=== PATIENT | male | born 1955 | race Caucasian/White ===

== ENCOUNTER 2018-05-19 06:25 | Day surgery (SDC) | payer OTHER ==
[~2018-05-19] VITALS: Ht 185.4 cm; Wt 127.0 kg
--- NOTE | ~2018-05-19 | OR ---
[facility] [address] [place], [place] [address] Draft DATE OF OPERATION: 05/19/2018 SURGEON: Milton Soriano MD PREOPERATIVE DIAGNOSIS: Tubular adenomas x2, 2016. POSTOPERATIVE DIAGNOSES: 1. Sigmoid diverticulosis. 2. Polyps x2 (small) right colon and left colon. PROCEDURE: Total colonoscopy to cecum with cold morcellation polypectomy x2. ANESTHESIA: Intravenous sedation, fentanyl 100 mcg, Versed 5 mg. INDICATION: This 62-year-old white man is a patient of Dr. Torres and has undergone colonoscopy by me in the past where he was noted to have tubular adenomas x2 that were excised. This was in 2015. He is symptom-free at this time. He is here for surveillance colonoscopy. He understands the risks of bleeding, infection, and perforation and wished to proceed. FINDINGS: The prep was excellent. Complete colonoscopy was undertaken to the cecum. There were 2 small polyps, one in the right colon, the other in the left, both were excised with cold morcellation technique. There were diverticula of the sigmoid colon. The rectum was normal. DESCRIPTION OF PROCEDURE: The patient was brought to the endoscopy suite and placed in lateral decubitus position, given intravenous sedation to the point of slurred speech and nystagmus. Digital rectal examination was normal. An Olympus video colonoscope was passed in the rectum and manipulated throughout the colon ultimately intubating the cecum itself. The ileocecal valve was slightly bulky, but not adenomatous. It was grasped and elevated, allowing for examination behind the ileocecal valve showing no sign of abnormality. The scope was then withdrawn and examination throughout undertaken showing a good prep. In the distal ascending colon was a small polyp. This was excised with cold morcellation technique completely. The PATIENT NAME: JOAO ECHAVARRIA OPERATIVE REPORT DATE OF : 57 REPORT #: [id number] PHYSICIAN: MILTON SORIANO MD PCP: NELLIE TORRES DO REPORT IS CONFIDENTIAL AND NOT TO BE RELEASED WITHOUT AUTHORIZATION [facility] [address] [place], [place] [address] Draft scope was further withdrawn and a similar such polyp was noted in the proximal descending colon. It too was excised with cold morcellation technique. Further withdrawal of scope showed some diverticula of the sigmoid and left colon. Retroflexed view of the rectum was normal. Scope was removed and the patient was taken to recovery room in good condition. CONCLUDING DIAGNOSES: 1. Polyps x2. 2. Diverticulosis of sigmoid and left colon. PLAN: Recommend repeat colonoscopy in 3 years, sooner if symptoms should occur. We will review his pathology report as well of course. He will return to the ongoing care of Dr. Torres, otherwise. MD SAMIR Lang/PORSCHEL /[id number] cc: Dr. Torres Copies: ~ PATIENT NAME: JOAO ECHAVARRIA OPERATIVE REPORT DATE OF : 57 REPORT #: [id number] PHYSICIAN: MILTON SORIANO MD PCP: NELLIE TORRES DO REPORT IS CONFIDENTIAL AND NOT TO BE RELEASED WITHOUT AUTHORIZATION
[~2018-05-19 06:25] MED LIST: ADULT LOW DOSE81 MG PO; ATORVASTATIN CA20 MG PO; BOSWELLIA SERRA10 GM MISC; COQ-10100 MG PO; DAILY MULTIPLE1 EACH PO; GARLIC1 EAC1 PO; GLUCOSAMINE &1 EAC1 PO; LOSARTAN POTAS100 MG PO; MELOXICAM7.5 MG PO; METFORMIN HCL500 M1 PO; NIACIN500 M1 PO; OMEGA 3 1,0001 EACH PO; RESVERATROL50 MG PO; VITAMIN D31000 UNI1 PO; ZESTORETIC 20-1 EACH PO
--- NOTE | 2018-05-19 08:16 | NUR ---
05/19/18 0816 Nicolette Metcalf 0811- PT ARRIVES TO PACU AWAKE. PT REPORTS NO PAIN OR NAUSEA. PT DROWSY AND FALLS TO SLEEP IF NOT BEING TALKED TO.
== END 2018-05-19 08:54 | disposition home or self-care (01) ==
LOC: OPS 06:25 → DS 06:25 → OPS 06:45
PROVIDERS: Surgery
PROC: 0DBM8ZX Excision of Descending Colon, Via Natural or Artificial Opening Endoscopic, Diagnostic (ICD-10-PCS; 2018-05-19)
PROC: 0DBK8ZX Excision of Ascending Colon, Via Natural or Artificial Opening Endoscopic, Diagnostic (ICD-10-PCS; principal; 2018-05-19 06:45)
DX: Z12.11 Encounter for screening for malignant neoplasm of colon (principal); D12.2 Benign neoplasm of ascending colon; D12.4 Benign neoplasm of descending colon; K57.30 Diverticulosis of large intestine without perforation or abscess without bleeding; E11.9 Type 2 diabetes mellitus without complications; I10 Essential (primary) hypertension; Z79.82 Long term (current) use of aspirin; Z79.52 Long term (current) use of systemic steroids; Z79.899 Other long term (current) drug therapy; Z79.84 Long term (current) use of oral hypoglycemic drugs; Z98.890 Other specified postprocedural states; Z86.010 Personal history of colon polyps
CPT/HCPCS: 99153; G0500; J2250; J3010; J7120

== ENCOUNTER 2019-10-09 05:01 | Observation (INO) | payer OTHER ==
[~2019-10-09] VITALS: Ht 188 cm; Wt 123.8 kg
[~2019-10-09 05:01] MED LIST changes: -VITAMIN D31000 UNI1 PO; +VITAMIN D35000 UNI2
[2019-10-09] MEDS ORDERED: ZINC CHELATED50 MG PO (08:24)
[2019-10-09] MEDS ORDERED: VITAMIN B122500 MC1 (08:25)
[2019-10-09] MEDS ORDERED: MAGNESIUM250 M1 PO (08:26)
--- NOTE | 2019-10-09 10:29 | EKG ---
[facility] [address] [facility] [place], [place] [address] Signed Supraventricular tachycardia Septal infarct , age undetermined Abnormal ECG No previous ECGs available Confirmed by TIFFANY CARRERA DO ([id number]) on 10/09/2019 10:28:57 AM Electronically Signed By: TIFFANY CARRERA DO 10/09/19 1029 PATIENT NAME: JOAO ECHAVARRIA Electrocardiogram DATE OF : 57 PHYSICIAN: TIFFANY CARRERA DO REPORT #: [id number] REPORT IS CONFIDENTIAL AND NOT TO BE RELEASED WITHOUT AUTHORIZATION
[2019-10-09] MEDS ORDERED: METOPROLOL SUCC50 MG PO (17:37)
== END 2019-10-09 19:03 | disposition home or self-care (01) ==
LOC: ED 05:01 → CCU 05:02 → ED 05:02 → CCU 05:03
PROVIDERS: ADMIT Student in an Organized Health Care Education/Training Program
DX: I48.91 Unspecified atrial fibrillation (principal); R73.03 Prediabetes; E78.00 Pure hypercholesterolemia, unspecified; M19.90 Unspecified osteoarthritis, unspecified site; Z87.891 Personal history of nicotine dependence; Z79.899 Other long term (current) drug therapy
CPT/HCPCS: 71045; 80053; 83735; 83880; 84484; 85025; 93005; 93010; 93306; 96374; 96375; 96376; 99285-25; G0378; J0153; J3475; J7030; J7121

== ENCOUNTER 2021-08-28 12:02 | Day surgery (SDC) | payer OTHER ==
[~2021-08-28] VITALS: Ht 188 cm; Wt 130.0 kg
[~2021-08-28 12:02] MED LIST changes: +CEFADROXIL500 MG PO; +FLOMAX0.4 MG PO; +LIPITOR40 MG PO; +MAGNESIUM250 M1 PO; +METOPROLOL SUCC50 MG PO; +VITAMIN B122500 MC1; +VITAMIN D310 MCG PO; +ZINC CHELATED50 MG PO
--- NOTE | 2021-08-28 14:42 | NUR ---
08/28/21 1442 Lauren Madsen 1410 PT ARRIVED IN PACU AWAKE WITH NO C/O'S. ABD SOFT AND PASSING FLATUS. 1430 DR AT BEDSIDE. ALL QUESTIONS ANSWERED. 1440 GETTING DRESSED. DC INSTRUCTIONS GIVEN.
--- NOTE | 2021-08-28 18:56 | OR ---
[facility] [address] [place], [place] [address] Signed DATE OF OPERATION: 08/28/2021 SURGEON: Milton Soriano MD PREOPERATIVE DIAGNOSIS: History of polyps. POSTOPERATIVE DIAGNOSIS: Small polyps x2. PROCEDURE: Total colonoscopy to cecum with cold snare polypectomy x1, cold morcellation polypectomy x1. ANESTHESIA: Intravenous sedation, fentanyl 100 mcg and Versed 6 mg. INDICATIONS FOR THE PROCEDURE: This 65-year-old white man is a patient of Dr. Aron Torres. He is well known to me from the past having last undergone colonoscopy in 2018, at which time he had a hyperplastic polyp. He has had adenomatous polyps in the past. He has no family history of colon cancer and currently no symptoms of bleeding, diarrhea, or constipation. He is admitted to undergo surveillance colonoscopy. He understands the risks of bleeding, infection, and perforation. FINDINGS: The prep was good. Complete colonoscopy was undertaken of the cecum without question. He had two very small polyps one in the left colon and the other in the right transverse, both excised completely. There were no other findings other than a few scattered diverticula of the sigmoid. DESCRIPTION OF PROCEDURE: The patient was brought to the endoscopy suite and placed in lateral decubitus position given intravenous sedation to a point of slurred speech and nystagmus. Digital rectal examination was normal. An Olympus video colonoscope was passed through the rectum and manipulated throughout the colon, ultimately intubating the cecum. The ileocecal valve appeared normal. The scope was withdrawn from that point. Examination throughout showed no sign of abnormality into the right transverse colon, where a small polyp was noted. A cold Electronically Signed By: MILTON SORIANO MD 08/28/21 1856 PATIENT NAME: JOAO ECHAVARRIA OPERATIVE REPORT DATE OF : 57 REPORT #: [id number] PHYSICIAN: MILTON SORIANO MD PCP: KORIN TORRES MD REPORT IS CONFIDENTIAL AND NOT TO BE RELEASED WITHOUT AUTHORIZATION [facility] [address] [place], [place] [address] Signed snare polypectomy was used to excise it. The specimen was passed for pathology. The scope was further withdrawn and at the approximately 80 cm in the left colon, a similar such small polyp was noted, this was far smaller than the previous and was excised with a single bite of a cold forceps biopsy device. Further withdrawal showed a few scattered diverticula. Retroflexed view of the rectum was normal. Scope was removed. The patient was taken to the recovery room in good condition. CONCLUDING DIAGNOSIS: Two small polyps, both excised and several diverticula. PLAN: Recommend high-fiber diet. Repeat colonoscopy in 7-10 years or sooner if symptoms should develop. MD SAMIR Lang/PORSCHEL /[id number] cc: Aron Torres DO Copies: ARON TORRES DO ~ Electronically Signed By: MILTON SORIANO MD 08/28/21 1856 PATIENT NAME: JOAO ECHAVARRIA OPERATIVE REPORT DATE OF : 57 REPORT #: [id number] PHYSICIAN: MILTON SORIANO MD PCP: KORIN TORRES MD REPORT IS CONFIDENTIAL AND NOT TO BE RELEASED WITHOUT AUTHORIZATION
--- NOTE | 2021-08-30 09:52 | PATH ---
[facility] [address] [place], [place] [address] Signed SPECIMEN(S): A PROXIMAL TRANSVERSE COLON POLYP SPECIMEN(S): B DESCENDING/LEFT COLON POLYP SPECIMEN SOURCE: A. PROXIMAL TRANSVERSE COLON POLYP B. DESCENDING/LEFT COLON POLYP CLINICAL HISTORY: History of adenomatous polyps. Post-op: Colon polyps, diverticulosis. Colonoscopy. MICROSCOPIC DESCRIPTION: Histologic sections of all submitted blocks are examined by light microscopy. These findings, together with the gross examination, support the pathologic diagnosis. FINAL PATHOLOGIC DIAGNOSIS: A. Colon, proximal transverse, polypectomy: - Tubular adenoma, one fragment. - An additional fragment of colonic epithelium demonstrates a benign intramucosal lymphoid nodule. - There is no evidence of high-grade dysplasia or malignancy. B. Colon, left/descending, polypectomy: - No significant histopathology. - There is no evidence of neoplasia. COMMENT: Regarding specimen B, the sections from the specimen are architecturally normal without crypt distortion. There is no acute or chronic inflammation. There are no abnormal infiltrates. There is no evidence of inflammatory, hyperplastic or adenomatous polyps. TWK:caw:C2NR GROSS DESCRIPTION: Two specimens are received in two containers, labeled "GS." A. The specimen, labeled "GS, proximal transverse colon polyp," is received in formalin and consists of two sosa soft tissue fragments that measure 0.1 cm in greatest dimension. The specimen is entirely submitted in cassette (A1). B. The specimen, labeled "GS, descending colon polyp," is received in formalin and consists of one sosa soft tissue fragment that measures 0.1 cm in greatest dimension. The specimen is entirely PATIENT NAME: JOAO ECHAVARRIA PATHOLOGY DATE OF : 57 REPORT #: [id number] PHYSICIAN: GREG PATHOLOGY PCP: KORIN TORRES MD REPORT IS CONFIDENTIAL AND NOT TO BE RELEASED WITHOUT AUTHORIZATION [facility] [address] [place] [address] Signed submitted in cassette (B1). JS (under the direct supervision of a pathologist) The Gross Description was prepared using a voice recognition system. The report was reviewed for accuracy; however, sound-alike word errors, addition and/or deletions may occur. If there is any question about this report, please contact Client Services. PERFORMING LABORATORY: The technical component was performed by [employer] [address] ([employer]: Tarah Walker MD; CLIA# [id number]). Professional interpretation was performed by [facility], [address] [address] (CLIA# [id number]). Diagnostician: Mich John MD Pathologist Electronically Signed 08/30/2021 Copies: ~ PATIENT NAME: JOAO ECHAVARRIA PATHOLOGY DATE OF : 57 REPORT #: [id number] PHYSICIAN: GREG PATHOLOGY PCP: KORIN TORRES MD REPORT IS CONFIDENTIAL AND NOT TO BE RELEASED WITHOUT AUTHORIZATION
== END 2021-08-28 14:45 | disposition home or self-care (01) ==
LOC: DS 12:02 → OPS 12:02 → DS 13:00 → OPS 14:45 → DS 08-29 12:45
PROVIDERS: ATTEND Surgery
PROC: 0DBG8ZX Excision of Left Large Intestine, Via Natural or Artificial Opening Endoscopic, Diagnostic (ICD-10-PCS; 2021-08-28)
PROC: 0DBL8ZX Excision of Transverse Colon, Via Natural or Artificial Opening Endoscopic, Diagnostic (ICD-10-PCS; principal; 2021-08-28 13:00)
DX: Z12.11 Encounter for screening for malignant neoplasm of colon (principal); D12.3 Benign neoplasm of transverse colon; E11.9 Type 2 diabetes mellitus without complications; I10 Essential (primary) hypertension; Z87.19 Personal history of other diseases of the digestive system
CPT/HCPCS: 99153; G0500; J0690; J2250; J3010; J7121

== ENCOUNTER 2022-08-07 13:00 | Emergency (ER) | payer OTHER ==
[~2022-08-07] VITALS: Ht 188 cm; Wt 133.8 kg
--- NOTE | 2022-08-07 17:52 | EKG ---
[facility] [address] [facility] [place] [address] Signed Atrial fibrillation with rapid ventricular response with premature ventricular or aberrantly conducted complexes Inferior infarct , age undetermined Abnormal ECG When compared with ECG of 09-OCT-2019 05:08, Atrial fibrillation has replaced Sinus rhythm QRS duration has decreased Criteria for Septal infarct are no longer present Inferior infarct is now present ST no longer elevated in Inferior leads T wave amplitude has decreased in Inferior leads Confirmed by TA MARTINEZ MD ([id number]) on 08/07/2022 5:52:48 PM Electronically Signed By: TA MARTINEZ MD 08/07/221751 PATIENT NAME: JOAO ECHAVARRIA Electrocardiogram DATE OF : 57 PHYSICIAN: TA MARTINEZ MD REPORT #: [id number] REPORT IS CONFIDENTIAL AND NOT TO BE RELEASED WITHOUT AUTHORIZATION
[2022-08-07] MEDS ORDERED: FUROSEMIDE40 MG PO (18:19)
[2022-08-07] MEDS ORDERED: SPIRONOLACTONE50 MG PO (18:19)
== END 2022-08-07 18:40 | disposition home or self-care (01) ==
LOC: ED 13:00
DX: I48.91 Unspecified atrial fibrillation (principal); K74.60 Unspecified cirrhosis of liver; E78.00 Pure hypercholesterolemia, unspecified; I10 Essential (primary) hypertension; Z87.891 Personal history of nicotine dependence; Z79.82 Long term (current) use of aspirin; Z79.899 Other long term (current) drug therapy; Z20.822 Contact with and (suspected) exposure to COVID-19
CPT/HCPCS: 36415; 71045; 76705; 80053; 83690; 83880; 84484; 85025; 87502; 93005; 93010; 96374; 96376; 99285-25; C9803; J1940; U0003

== ENCOUNTER 2024-12-09 11:01 | Emergency (ER) | payer OTHER ==
[~2024-12-09] VITALS: Ht 188 cm; Wt 124.0 kg
[~2024-12-09 11:01] MED LIST changes: +FUROSEMIDE40 MG PO; +SPIRONOLACTONE50 MG PO
[2024-12-09] MEDS ORDERED: ELIQUIS5 MG PO (11:12)
[2024-12-09] MEDS ORDERED: BRILINTA60 MG PO (11:12)
[2024-12-09 11:35] VITALS: BP 128/109
== END 2024-12-09 11:39 | disposition home or self-care (01) ==
LOC: ED 11:01
DX: S61.215A Laceration without foreign body of left ring finger without damage to nail, initial encounter (principal); E78.00 Pure hypercholesterolemia, unspecified; I10 Essential (primary) hypertension; Z87.891 Personal history of nicotine dependence; Z79.01 Long term (current) use of anticoagulants; Z79.899 Other long term (current) drug therapy; W26.8XXA Contact with other sharp object(s), not elsewhere classified, initial encounter
CPT/HCPCS: 99282